=== PATIENT | male | born 1990 | race Native Hawaiian/Other Pacific Islander ===

== ENCOUNTER 2018-08-28 02:59 | Emergency (ER) | payer OTHER ==
--- NOTE | 2018-08-28 03:44 | ED PDOC ---
Upper Extremity Pain/Injury Time Seen by Provider: 08/28/18 03:14 Chief Complaint (Nursing): Upper Extremity Problem/Injury History Per: Patient Additional Complaint(s): Pt. is a [employer] and earlier today he was attempting to arrest someone when the arrestee's full weight fell on his R hand. Denies numbness, tingling, other injury. Past Medical History Reviewed: Historical Data, Nursing Documentation, Vital Signs Vital Signs: Last Vital Signs Temp 98.4 F 08/28/18 03:03 Pulse 86 08/28/18 03:03 Resp 16 08/28/18 03:03 BP 133/76 08/28/18 03:03 Pulse Ox 98 08/28/18 03:03 - Surgical History Surgical History: Appendectomy, Tonsillectomy - Family History Family History: States: No Known Family Hx - Allergies Allergies/Adverse Reactions: Allergies Allergy/AdvReac Type Severity Reaction Status Date / Time No Known Allergies Allergy Verified 08/28/18 03:29 Review of Systems ROS Statement: Except As Marked, All Systems Reviewed And Found Negative Musculoskeletal: Positive for: Hand Pain Physical Exam - Physical Exam Appears: Positive for: Well, Non-toxic, No Acute Distress Skin: Positive for: Normal Color, Warm. Negative for: Rash Eye Exam: Positive for: Normal appearance Extremity: Positive for: Normal ROM (FROM actively of entire R hand; mild tenderness and swelling on dorsal surface of R hand over 3rd MCP without deformity or break in skin integrity), Capillary Refill (< 2 seconds of R hand) Neurologic/Psych: Positive for: Alert, Oriented (x3) - ECG O2 Sat by Pulse Oximetry: 98 - Progress ED Course And Treament: R hand x-ray ordered. Offered pain meds but refused. Disposition - Clinical Impression Clinical Impression: Injury of hand - Patient ED Disposition Is Patient to be Admitted: No - Disposition Referrals: Ernesto Tenorio MD [Medical Doctor] - Disposition: Routine/Home Disposition Time: 04:06 Condition: STABLE Additional Instructions: HORACIO MITCHELL, thank you for letting us take care of you today. Your provider was Charo Riggs MD and you were treated for WC:RT HAND INJURY. The emergency medical care you received today was directed at your acute symptoms. If you were prescribed any medication, please fill it and take as directed. It may take several days for your symptoms to resolve. Return to the Emergency Department if your symptoms worsen, do not improve, or if you have any other problems. Please contact your doctor or call one of the physicians/clinics you have been referred to that are listed on the Patient Visit Information form that is included in your discharge packet. Bring any paperwork you were given at discharge with you along with any medications you are taking to your follow up visit. Our treatment cannot replace ongoing medical care by a primary care provider outside of the emergency department. Thank you for allowing the [facility] team to be part of your care today. If you had an X-Ray or CT scan: A Radiologist will review the ED reading if any change in treatment is needed we will contact you. If you had a blood, urine, or wound culture: It will take several days for the results, if any change in treatment is needed we will contact you. If you had an STI test: It will take 48 hours for the results. Please call after 1 week if you have not heard back. Instructions: Hand Pain (DC) Forms: [facility] [employer] ([place]ic), [facility] ED School/Work Excuse
[2018-08-28 04:23] VITALS: BP 138/70; PULSE 100; RESP 18; TEMP 98.6
--- NOTE | 2018-08-28 11:05 | RAD ---
PROCEDURE: Right Hand Radiographs. HISTORY: trauma COMPARISON: None. FINDINGS: BONES: No acute fracture. JOINTS: Unremarkable. SOFT TISSUES: Normal. OTHER FINDINGS: None. IMPRESSION: No demonstrated fracture or dislocation.
[2018-08-29 01:00] VITALS: O2SAT 98
== END 2018-08-28 04:45 | disposition home or self-care (01) ==
LOC: H.ER 02:59
DX: S69.91XA Unspecified injury of right wrist, hand and finger(s), initial encounter (principal); X58.XXXA Exposure to other specified factors, initial encounter